=== PATIENT | female | born 1950 | race Caucasian/White ===

== ENCOUNTER 2023-10-24 15:29 | Outpatient (AMB) | payer MEDICARE, SELFPAY ==
--- NOTE | 2023-10-24 15:46 | A.OFFPC_ITS ---
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 Required: No Allergies No Known Allergies Allergy (Verified 10/24/23 15:48) Medication List - Last Reconciled 10/24/23 by Kathy Geronimo MD metoprolol succinate ER 25 mg PO DAILY pantoprazole 40 mg PO DAILY pravastatin mg PO Tobacco use date assessed: 10/24/23 Fall risk assessment: No Falls in past year Last assessed Fall Risk: 10/24/23 Dental Screening Dental Screen Date: 10/24/23 Did you have a dental visit in the last 12 months?: Yes Did you have a dental problem in the last 6 months where you did not have access to dental care?: No Was dental information given to patient?: No HPI HPI Comments History of Present Illness Details The patient is a 72 year old female with a past medical history of hypertension, hyperlipidemia, anxiety, depression, GERD, neck pain presenting for follow up CV: On metoprolol ER 25mg daily, pravastatin 40mg every oter day. Denies chest pain, exertional dyspnea, NIX, vision changes GERD: On pantoprazole 40mg daily Insomnia: Previously on lunesta MSK: History of CTS Dr Annemarie Boyd 2022. Neck pain-MRI multilevel DDD cervical spine. Severe bilateral neural foraminal narrowing at C4-C5 and severe right neuroforaminal narrowing at C5-C6. [facility] Medical History (Updated 10/24/23 @ 16:08 by Kathy Geronimo MD) Paresthesia of skin Macrocytosis Insomnia HTN (hypertension) Hyperlipidemia History of pneumonia History of kidney stones Hiatal hernia Herniated cervical disc Depression DDD (degenerative disc disease), cervical Carpal tunnel syndrome Arthritis Anesthesia of skin Surgical History (Updated 10/24/23 @ 15:59 by Melisa Jolley CMA) Status post laser cataract surgery of right eye Hx of tubal ligation History of colonoscopy Family History (Updated 10/24/23 @ 16:01 by Melisa Jolley CMA) Mother Dementia Father Lung cancer Sister COPD (chronic obstructive pulmonary disease) Other Anxiety FH: mental illness Social History (Updated 10/24/23 @ 15:50 by Melisa Jolley CMA) Housing: House Patient Tobacco Use Status: Former Tobacco user Years Smoked: 25 e-Cigarette/Vaping Use: Never Used Second Hand Smoke Exposure: No Use of substances other than those prescribed or required for medical reasons: No service: No Current occupational status: employed and retired Cognitive needs: No Hearing needs: No Vision needs: No Questionnaire AUDIT C Alcohol Use Questionnaire (AUDIT-C) 1. How often do you have a drink containing alcohol?: 2-3 times a week 2. How many drinks containing alcohol do you have on a typical day when you are drinking?: 3 or 4 3. How often do you have six or more drinks on one occasion?: Never Total Score: 4 Physical exam (Primary Care) Vital Signs: Last Vital Signs Temp 98.2 F 10/24/23 15:52 Pulse 69 10/24/23 15:52 Resp 14 10/24/23 15:52 BP 118/62 10/24/23 15:52 Pulse Ox 94 10/24/23 15:52 Oxygen Delivery Method Room Air 10/24/23 15:52 BMI result Body Mass Index 24.4 Tobacco/Smoking Status: Tobacco use Status Tobacco use date assessed 10/24/23 10/24/23 15:51 Patient Tobacco Use Status Former Tobacco user 10/24/23 15:51 e-Cigarette/Vaping Use Never Used 10/24/23 15:51 Assessment and Plan Assessment & Plan (1) DDD (degenerative disc disease), cervical: Code(s): M50.30 - Other cervical disc degeneration, unspecified cervical region (2) Hyperlipidemia: Code(s): E78.5 - Hyperlipidemia, unspecified (3) HTN (hypertension): Code(s): I10 - Essential (primary) hypertension (4) Insomnia: Code(s): G47.00 - Insomnia, unspecified Orders: Orders Complete Blood Count Auto Diff Today E78.5 - Hyperlipidemia, unspecified, I10 - Essential (primary) hypertension, M50.30 - Other cervical disc degeneration, unspecified cervical region, Z13.0 - Encounter for screening for diseases of the blood and blood-forming organs and certain disorders involving the immune mechanism Comprehensive Met. Panel Today E78.5 - Hyperlipidemia, unspecified, I10 - Essential (primary) hypertension, M50.30 - Other cervical disc degeneration, unspecified cervical region, Z13.0 - Encounter for screening for diseases of the blood and blood-forming organs and certain disorders involving the immune mechanism Lipid Panel Today E78.5 - Hyperlipidemia, unspecified, I10 - Essential (primary) hypertension, M50.30 - Other cervical disc degeneration, unspecified cervical region, Z13.0 - Encounter for screening for diseases of the blood and blood-forming organs and certain disorders involving the immune mechanism Medications: New pantoprazole 40 mg PO DAILY 90 days 90 tabs 3RF pravastatin 40 mg PO DAILY 90 days 90 tabs 3RF eszopiclone (Lunesta) 3 mg PO DAILY 60 days 60 tabs 0RF G47.00 - Insomnia, unspecified diclofenac sodium 1% (Arthritis Pain (diclofenac)) apply to shoulder 2 grams topical QID 90 days 100 grams 1RF prednisone 40 mg (2 x 20 mg) PO DAILY 5 days 10 tabs 0RF Coding Level of Care Code Est Pt Level 4 (58815) Complex EM visit Add On G2211 Diagnoses DDD (degenerative disc disease), cervical M50.30 Hyperlipidemia E78.5 HTN (hypertension) I10 Insomnia G47.00
[2023-10-24 15:52] VITALS: BP 118/62; PULSE 69; RESP 14; TEMP 36.8; O2SAT 94; BMI 24.4
== END 2023-10-24 16:49 | disposition home or self-care (01) ==
PROVIDERS: PCP Internal Medicine; Visit Provider Internal Medicine
DX: M50.30 Other cervical disc degeneration, unspecified cervical region (principal); E78.5 Hyperlipidemia, unspecified; I10 Essential (primary) hypertension; G47.00 Insomnia, unspecified
CPT/HCPCS: 99214; G2211

== ENCOUNTER 2024-04-30 13:34 | Outpatient (AMB) | payer MEDICARE, SELFPAY ==
[2024-04-30 13:41] VITALS: BP 144/67; PULSE 75; TEMP 37.3; O2SAT 93; BMI 23.3
--- NOTE | 2024-04-30 13:41 | A.OFFPC_ITS ---
Vital Signs 04/30/24 13:41 04/30/24 13:46 Height 5 ft 4 in Weight 136 lb BMI 23.3 BP 144/67 H 142/67 H Blood Pressure Location Lt brachial Lt brachial Position Sitting Sitting Pulse 75 Pulse Source Pulse Oximeter Temp 99.1 F Temp Source Temporal Artery Scan Pulse Oximetry (%) 93 Oxygen Delivery Method Room Air Intake Visit Reasons: Cold and Trouble Breathing Intake Note: Coughing, trouble breathing, crackling in the lungs. Transmission Systems Operator Required: No Allergies No Known Allergies Allergy (Verified 04/30/24 13:48) Tobacco use date assessed: 10/24/23 Dental Screening Dental Screen Date: 10/24/23 HPI HPI Comments History of Present Illness Details The patient is a 72 year old female with a past medical history of hypertension, hyperlipidemia, anxiety, depression, GERD, neck pain presenting for sick visit She has had nasal congestion, cough, shortness of breath, intermittent wheeze since . She has a history of pneumonia. Low grade temp today CV: On metoprolol ER 25mg daily, pravastatin 40mg every oter day. Denies chest pain, exertional dyspnea, NIX, vision changes GERD: On pantoprazole 40mg daily Insomnia: Previously on lunesta MSK: History of CTS Dr Annemarie Boyd 2022. Neck pain-MRI multilevel DDD cervical spine. Severe bilateral neural foraminal narrowing at C4-C5 and severe right neuroforaminal narrowing at C5-C6. ROS see hpi PHYSICAL EXAM: GENERAL: Alert and oriented x 3. NAD EYES: EOMI. Anicteric. HENT: Moist mucous membranes. Boggy nasal mucosa. LUNGS: Poor air entry bilaterally CARDIOVASCULAR: Regular rate and rhythm. No murmur. No JVD. ABDOMEN: Soft, non-tender +bs EXTREMITIES: No edema. Non-tender. SKIN: No rashes or lesions. Warm. NEUROLOGIC: No focal neurological deficits. CN II-XII grossly intact PSYCHIATRIC: Cooperative. Appropriate mood and affect [facility] Medical History (Updated 05/02/24 @ 11:18 by Kathy Geronimo MD) Paresthesia of skin Macrocytosis Insomnia HTN (hypertension) Hyperlipidemia History of pneumonia History of kidney stones Hiatal hernia Herniated cervical disc Depression DDD (degenerative disc disease), cervical Carpal tunnel syndrome Arthritis Anesthesia of skin Surgical History (Updated 10/24/23 @ 15:59 by Melisa Jolley CMA) Status post laser cataract surgery of right eye Hx of tubal ligation History of colonoscopy Family History (Updated 10/24/23 @ 16:02 by Melisa Jolley CMA) Mother Dementia Father Lung cancer Sister COPD (chronic obstructive pulmonary disease) Other Anxiety FH: mental illness Social History (Updated 10/24/23 @ 15:50 by Melisa Jolley CMA) Housing: House Patient Tobacco Use Status: Former Tobacco user Years Smoked: 25 e-Cigarette/Vaping Use: Never Used Second Hand Smoke Exposure: No service: No Current occupational status: employed and retired Cognitive needs: No Hearing needs: No Vision needs: No Questionnaire PHQ-9 Over the last 2 weeks, how often have you been bothered by any of the following problems? 9. Thoughts that you would be better off or of hurting yourself in some w ay: not at all Source: Developed by Drs. Karson Ramirez, Sierra Barroso, Julian Casas and colleagues, with an educational kush from [employer]. Thrive Questionnaire I am a: Patient What is your living situation today?: I have a steady place to live Within the past 12 months, did the food you bought not last and you didn't have the money to get more?: Never true Within the past 12 months, did you worry whether your food would run out before you got money to buy more?: Never true Do you have trouble paying for medicines?: No Do you have trouble getting transportation to medical appointments?: No Do you have trouble paying your heating and electricity bill?: No Do you have trouble taking care of your child, family member or friend?: No Do you have trouble with day-to-day activities such as bathing, preparing meals, shopping, managing finances, etc.?: No Are you currently unemployed and looking for a job?: No Are you interested in more education?: No Please select the resources that you would like help with: None Currently or been in a relationship where the following occur: No concerns reported THRIVE Score: 0 AUDIT C Alcohol Use Questionnaire (AUDIT-C) 1. How often do you have a drink containing alcohol?: 2-3 times a week 2. How many drinks containing alcohol do you have on a typical day when you are drinking?: 1 or 2 3. How often do you have six or more drinks on one occasion?: Never Total Score: 3 BROOKE-7 AMB Questionnaire BROOKE-7 Feeling nervous, anxious, or on edge: 1 = Several days Not being able to stop or control worryin = More than half the days Worrying too much about different things: 0 = Not at all Trouble relaxin = Not at all Being so restless that it is hard to sit still: 0 = Not at all Becoming easily annoyed or irritable: 1 = Several days Feeling afraid as if something awful might happen: 0 = Not at all Total BROOKE-7 score (0-4 normal; 5-9 mild; 10-14 moderate; 15-21 severe): 4 Source: Developed by Drs. Karson Ramirez, Sierra Barroso, Julian Casas and colleagues, with an educational kush from [employer]. Physical exam (Primary Care) Vital Signs: Last Vital Signs Temp 99.1 F 04/30/24 13:41 Pulse 75 04/30/24 13:41 BP 142/67 H 04/30/24 13:46 Pulse Ox 93 04/30/24 13:41 Oxygen Delivery Method Room Air 04/30/24 13:41 BMI result Body Mass Index 23.3 Tobacco/Smoking Status: Tobacco use Status Tobacco use date assessed 10/24/23 04/30/24 13:47 Patient Tobacco Use Status Former Tobacco user 04/30/24 13:47 e-Cigarette/Vaping Use Never Used 04/30/24 13:47 Currently or been in a relationship where the following occur: No concerns reported Coding Level of Care Code Est Pt Level 4 (90037) Diagnoses Acute cough R05.1 Cough type: acute Assessment & Plan Assessment & Plan (1) Cough: Code(s): R05.9 - Cough, unspecified Category: Medical Qualifiers: Cough type: acute Qualified Code(s): R05.1 - Acute cough Plan: Poor air entry bilaterally-potential pneumonia. Doxycycline, prednisone sent. ADvised to call for persistent or worsening symptoms RSV/flu/COVID swab sent Orders: Orders Resp Pathogen [place] [facility] [place] R05.9 - Cough, unspecified Medications: New doxycycline hyclate 100 mg PO BID 20 tabs 0RF albuterol sulfate 90 mcg/actuation 2 puffs inhalation Q6H PRN 8.5 grams 0RF shortness of breath or wheezing 30 days Changed From prednisone 40 mg (2 x 20 mg) PO DAILY 5 days 10 tabs 0RF To prednisone 40 mg (2 x 20 mg) PO DAILY 6 tabs 0RF 3 days Refilled eszopiclone (Lunesta) 3 mg PO DAILY 60 tabs 0RF 60 days G47.00 - Insomnia, unspecified
[2024-04-30 13:46] VITALS: BP 142/67
== END 2024-04-30 14:21 | disposition home or self-care (01) ==
PROVIDERS: PCP Internal Medicine; Visit Provider Internal Medicine
DX: R05.1 Acute cough (principal)

== ENCOUNTER 2024-04-30 13:34 | Outpatient (REF) | payer MEDICARE, SELFPAY ==
[2024-05-01 16:15] LABS: Influenza A PCR NEGATIVE (Negative); Influenza B PCR NEGATIVE (Negative); Resp Syncy Virus RNA Qual PCR NEGATIVE (Negative); SARS COV2 PCR INHOUSE NEGATIVE (Negative)
== END 2024-04-30 13:35 | disposition home or self-care (01) ==
LOC: HO.LNP 13:34
PROVIDERS: PCP Internal Medicine; Visit Provider Internal Medicine
DX: R05.1 Acute cough (principal)
CPT/HCPCS: 0241U; 99212

== ENCOUNTER 2025-01-28 15:51 | Outpatient (AMB) | payer MEDICARE, SELFPAY ==
--- NOTE | 2025-01-28 15:55 | MHC.PC.OV ---
Vital Signs 01/28/25 15:58 Height 5 ft 4 in Weight 140 lb 6 oz BMI 24.1 BP 128/72 Blood Pressure Location Rt brachial Position Sitting Respiration 14 Pulse 62 Pulse Source Pulse Oximeter Pulse Oximetry (%) 94 Oxygen Delivery Method Room Air Intake Visit Reasons: Med Review Intake Note: Follow up Cake Winder Required: No Allergies No Known Allergies Allergy (Verified 01/28/25 15:56) Tobacco use date assessed: 01/28/25 Fall risk assessment: No Falls in past year Last assessed Fall Risk: 01/28/25 Dental Screening Dental Screen Date: 01/28/25 Did you have a dental visit in the last 12 months?: Yes Did you have a dental problem in the last 6 months where you did not have access to dental care?: No Was dental information given to patient?: Patient has dentist HPI HPI Comments History of Present Illness Details The patient is a 74 year old female with a past medical history of hypertension, hyperlipidemia, anxiety, depression, GERD, neck pain presenting for follow up CV: On metoprolol ER 25mg daily, pravastatin 40mg every other day. Denies chest pain, exertional dyspnea, NIX, vision changes GERD: On pantoprazole 40mg daily. She is having frequent reflux, dyspepsia. No heartburn. She would like to try and increase meds to twice daily. She has a history of hiatal hernia Insomnia: On lunesta as needed. Increased depressive symptoms. Decline medications MSK: History of CTS Dr Annemarie Boyd 2022. Neck pain-MRI multilevel DDD cervical spine. Severe bilateral neural foraminal narrowing at C4-C5 and severe right neuroforaminal narrowing at C5-C6. Has seen explosive technician. Has lichen sclerosis. Feels that she has more diffuse autoimmune issues. Frustrated b/c she wants to try HRT. Sees dermatology Mammogram ordered Declines colon cancer screening. ROS see hpi PHYSICAL EXAM: GENERAL: Alert and oriented x 3. NAD EYES: EOMI. Anicteric. HENT: Moist mucous membranes. Boggy nasal mucosa. LUNGS: Poor air entry bilaterally CARDIOVASCULAR: Regular rate and rhythm. No murmur. No JVD. ABDOMEN: Soft, non-tender +bs EXTREMITIES: No edema. Non-tender. SKIN: No rashes or lesions. Warm. NEUROLOGIC: No focal neurological deficits. CN II-XII grossly intact PSYCHIATRIC: Cooperative. Appropriate mood and affect [facility] Medical History (Updated 01/30/25 @ 15:02 by Kathy Geronimo MD) Paresthesia of skin Macrocytosis Insomnia HTN (hypertension) Hyperlipidemia History of pneumonia History of kidney stones Hiatal hernia Herniated cervical disc Depression DDD (degenerative disc disease), cervical Carpal tunnel syndrome Arthritis Anesthesia of skin Surgical History Status post laser cataract surgery of right eye Hx of tubal ligation History of colonoscopy Family History Mother Dementia Father Lung cancer Sister COPD (chronic obstructive pulmonary disease) Other Anxiety FH: mental illness Social History Housing: House Alcohol intake: current Patient Tobacco Use Status: Former Tobacco user Years Smoked: 25 e-Cigarette/Vaping Use: Never Used Second Hand Smoke Exposure: No service: No Current occupational status: employed and retired Cognitive needs: No Hearing needs: No Vision needs: No Questionnaire Thrive Questionnaire Date Thrive assessed: 04/30/24 I am a: Patient What is your living situation today?: I have a steady place to live Within the past 12 months, did the food you bought not last and you didn't have the money to get more?: Never true Within the past 12 months, did you worry whether your food would run out before you got money to buy more?: Never true Do you have trouble paying for medicines?: No Do you have trouble getting transportation to medical appointments?: No Do you have trouble paying your heating and electricity bill?: No Do you have trouble taking care of your child, family member or friend?: No Do you have trouble with day-to-day activities such as bathing, preparing meals, shopping, managing finances, etc.?: No Are you currently unemployed and looking for a job?: No Are you interested in more education?: No Please select the resources that you would like help with: None Currently or been in a relationship where the following occur: No concerns reported THRIVE Score: 0 AUDIT C Alcohol Use Questionnaire (AUDIT-C) 1. How often do you have a drink containing alcohol?: 2-3 times a week 2. How many drinks containing alcohol do you have on a typical day when you are drinking?: 1 or 2 3. How often do you have six or more drinks on one occasion?: Never Total Score: 3 Physical exam (Primary Care) Vital Signs: Last Vital Signs Pulse 62 01/28/25 15:58 Resp 14 01/28/25 15:58 BP 128/72 01/28/25 15:58 Pulse Ox 94 01/28/25 15:58 Oxygen Delivery Method Room Air 01/28/25 15:58 BMI result Body Mass Index 24.1 Tobacco/Smoking Status: Tobacco use Status Tobacco use date assessed 01/28/25 01/28/25 16:01 Patient Tobacco Use Status Former Tobacco user 01/28/25 16:01 e-Cigarette/Vaping Use Never Used 01/28/25 16:01 Thrive Assessment: Date of Thrive Assessment Date Thrive assessed 04/30/24 01/28/25 16:01 Currently or been in a relationship where the following occur: No concerns reported Coding Level of Care Code Est Pt Level 4 (65890) Complex EM visit Add On G2211 Diagnoses Lichen sclerosus L90.0 Primary hypertension I10 Hypertension type: primary hypertension Hyperlipidemia, unspecified hyperlipidemia type E78.5 Hyperlipidemia type: unspecified Dyspepsia R10.13 Mild episode of recurrent major depressive disorder F33.0 Active/Remission status: currently active Depression Type: major depressive disorder Major depression episode severity: mild Major depression recurrence: recurrent Assessment & Plan Assessment & Plan (1) Lichen sclerosus: Code(s): L90.0 - Lichen sclerosus et atrophicus Category: Medical (2) HTN (hypertension): Code(s): I10 - Essential (primary) hypertension Category: Medical Qualifiers: Hypertension type: primary hypertension Qualified Code(s): I10 - Essential (primary) hypertension (3) Hyperlipidemia: Code(s): E78.5 - Hyperlipidemia, unspecified Category: Medical Qualifiers: Hyperlipidemia type: unspecified Qualified Code(s): E78.5 - Hyperlipidemia, unspecified (4) Dyspepsia: Code(s): R10.13 - Epigastric pain Category: Medical (5) Depression: Code(s): F32.A - Depression, unspecified Category: Medical Qualifiers: Active/Remission status: currently active Depression Type: major depressive disorder Major depression episode severity: mild Major depression recurrence: recurrent Qualified Code(s): F33.0 - Major depressive disorder, recurrent, mild Plan 74 year old for follow up dyspepsia/reflux-increase PPI to max. Check h pylori. Mammo ordered lichen sclerosis-she would like to try HRT. Discussed risks, benefits Depression-she declines medications. Worried about weight gain Labs ordered Orders: Orders H pylori Ag Stool 01/28/25 E78.5 - Hyperlipidemia, unspecified, I10 - Essential (primary) hypertension, M50.30 - Other cervical disc degeneration, unspecified cervical region, R10.13 - Epigastric pain, R35.89 - Other polyuria Complete Blood Count Auto Diff 01/28/25 E78.5 - Hyperlipidemia, unspecified, I10 - Essential (primary) hypertension, M50.30 - Other cervical disc degeneration, unspecified cervical region, R10.13 - Epigastric pain, R35.89 - Other polyuria Comprehensive Met. Panel 01/28/25 E78.5 - Hyperlipidemia, unspecified, I10 - Essential (primary) hypertension, M50.30 - Other cervical disc degeneration, unspecified cervical region, R10.13 - Epigastric pain, R35.89 - Other polyuria Lipid Panel 01/28/25 E78.5 - Hyperlipidemia, unspecified, I10 - Essential (primary) hypertension, M50.30 - Other cervical disc degeneration, unspecified cervical region, R10.13 - Epigastric pain, R35.89 - Other polyuria Hemoglobin A1c 01/28/25 E78.5 - Hyperlipidemia, unspecified, I10 - Essential (primary) hypertension, M50.30 - Other cervical disc degeneration, unspecified cervical region, R10.13 - Epigastric pain, R35.89 - Other polyuria TORI Reflex Titer and Pattern Today L90.0 - Lichen sclerosus et atrophicus MM tomosynthesis screening BI 01/28/25 Z12.31 - Encounter for screening mammogram for malignant neoplasm of breast Medications: New estradiol-norethindrone acet 1-0.5 mg (Activella) 1 tab PO DAILY 28 tabs 3RF Changed From pantoprazole 40 mg PO DAILY 90 days 180 tabs 3RF To pantoprazole 40 mg PO BID 180 tabs 3RF 90 days Refilled pantoprazole 40 mg PO DAILY 90 days 180 tabs 3RF
[2025-01-28 15:58] VITALS: BP 128/72; PULSE 62; RESP 14; O2SAT 94; BMI 24.1
--- OUTSIDE RECORDS SUMMARY | 2025-01-28 17:56 | XMS_ITS | Clinical Summary ---
Author Organization [address] [facility] Address [address] [place] [address] Phone Care Team Providers Care Supply Chain Business Analyst Name Role Phone Physician, Pcp Unknown Primary Care Provider Pili vailable Surgical History Surgery Date Site/Laterality Comments SHOULDER ARTHROSCOPY PROCEDURE: CO SURGICAL ARTHROSCOPY SHOULDER W/LSS&[id number] ADS Medical History Medical History Date Comments Essential hypertension DX:Essent ial hypertension Acid reflux DX:Acid reflux Social History Tobacco Use Types Packs/Day Years Used Date Smoking Tobacco: Never Smokeless Tobacco: Never Comments Unknown Sex and Gender Information Value Date Recorded Sex Assigned at Not on file Legal Sex Female 8:28 PM EDT Gender Identity Not on file Sexual Orientation Not on file Obstetrics History Last Filed Vital Signs Vital Sign Reading Time Taken Comments Blood Pressure - - Pulse - - Temperature - - Respiratory Rate - - Oxygen Saturation - - Inhaled Oxygen Concentration - - Weight 62.6 kg (138 lb) 03/23/2023 1:02 PM EST Height 162.6 cm (5' 4 ) 03/23/2023 1:02 PM EST Body Mass Index 23.69 03/23/2023 1:02 PM EST Plan of Treatment Health Maintenance Due Date Last Done Comments DTaP,Tdap,and Td Vaccines (1 - Tdap) 1969 Pneumococcal Vaccine: 50+ Ye ars (1 of 1 - PCV) 10/31/1999 Zoster Vaccines (1 of 2) 10/31/1999 Colorectal Cancer Screening: Colonoscopy 04/04/2022 Falls Risk Assessment 04/04/2022 Hepatitis C Screening 04/04/2022 Medicare Annual Wellness Visit 04/04/2022 Osteoporosis Screening (Bone Density Screening) 04/04/2022 Social Influencers of Health Screening 04/04/2022 Depression Screening 05/02/2024 RSV Immunization Adult Patie nts (1 - 1-dose 75+ series) 2024 COVID-19 Vaccine (1 2023-2 5 season) 2024 Influenza Vaccine (#1) 2024 HIB Vaccines Aged Out No longer eligi ble based on patient's age to complete this topic HPV Vaccines Aged Out No longer eligi ble based on patient's age to complete this topic Hepatitis A Vaccines Aged Out No long er eligible based on patient's age to complete this topic Hepatitis B Vaccines Aged Out No long er eligible based on patient's age to complete this topic IPV Vaccines Aged Out No longer eligi ble based on patient's age to complete this topic MMR Vaccines Aged Out No longer eligi ble based on patient's age to complete this topic Meningococcal ACWY Vaccine Aged Out N o longer eligible based on patient's age to complete this topic Meningococcal B Vaccine Aged Out No l onger eligible based on patient's age to complete this topic RSV Immunization Patients Un loyda 20 months Aged Out No longer eligible b ased on patient's age to complete this topic Varicella Vaccines Aged Out No longer eligible based on patient's age to complete this topic Insurance BLUE [employer]OSS - [place] MEDICARE ADVANTAGE Care Teams Supply Chain Business Analyst Relationship Specialty Start Date End Date Physician, Pcp Unknown PCP - General 09/20/24
--- OUTSIDE RECORDS SUMMARY | 2025-01-28 17:56 | XMS_ITS | Encounter Summary ---
Author Organization [facility] Address [address] [place] [address] Care Team Providers Care Cabinet Maker Name Role Phone Physician, Pcp Unknown Primary Care Provider Pili vailable Encounter Details Date Type Department Care Team (Late st Contact Info) Description 09/20/2024 Lab Requisition [facility] - Main Lab [address] [place] [phone] Marce aSba MD [address] [phone] Acute vaginitis Social History Tobacco Use Types Packs/Day Years Used Date Smoking Tobacco: Never Smokeless Tobacco: Never Comments Unknown Sex and Gender Information Value Date Recorded Sex Assigned at Not on file Legal Sex Female 8:28 PM EDT Gender Identity Not on file Sexual Orientation Not on file documented as of this encounter Plan of Treatment Not on file documented as of this encounter Procedures Procedure Name Priority Date/Time Associated Diagnosis Comments VAGINITIS PATHOGENS BY PCR Routine 09/20/2024 12:00 AM EDT Acute vaginitis documented in this encounter Results * Vaginitis pathogens molecular study (09/20/2024 12:00 AM EDT) Trichomonas vaginalis Negative Negative 09/21/2024 11:40 AM EDT [facility] Gardnerella vaginalis Negative Negative 09/21/2024 11:40 AM EDT [facility] Ira Species Negative Negative 11:40 AM EDT [facility] Swab Vaginal structure / Unknown 09/20/2024 09/20/2024 12:31 PM EDT us Marce Saba MD LAB MICROBIOLOGY - GENER AL ORDERABLES Final Result [facility] [address] [place] [address], documented in this encounter Visit Diagnoses Diagnosis Acute vaginitis Unspecified vaginitis and vulvovaginitis documented in this encounter Care Teams Cabinet Maker Relationship Specialty Start Date End Date Physician, Pcp Unknown PCP - General 09/20/24 documented as of this encounter
== END 2025-01-28 16:15 | disposition home or self-care (01) ==
LOC: HO.HMCFM 15:52
PROVIDERS: PCP Internal Medicine; Visit Provider Internal Medicine
DX: L90.0 Lichen sclerosus et atrophicus (principal); I10 Essential (primary) hypertension; E78.5 Hyperlipidemia, unspecified; R10.13 Epigastric pain; F33.0 Major depressive disorder, recurrent, mild

== ENCOUNTER → 2025-01-28 15:51 | Outpatient (BNVA) | payer MEDICARE, SELFPAY | PROVIDERS: PCP Internal Medicine; Visit Provider Internal Medicine | DX: L90.0 Lichen sclerosus et atrophicus (principal); I10 Essential (primary) hypertension; E78.5 Hyperlipidemia, unspecified; R10.13 Epigastric pain; F33.0 Major depressive disorder, recurrent, mild; K21.9 Gastro-esophageal reflux disease without esophagitis; G47.00 Insomnia, unspecified; Z79.899 Other long term (current) drug therapy | CPT/HCPCS: 99212 ==

== ENCOUNTER 2025-02-07 12:48 | Outpatient (REF) | payer MEDICARE, SELFPAY ==
[2025-02-07 14:33] LABS: MANUAL DIFF FLAG NO
[2025-02-07 14:36] LABS: Hematocrit 33.3 % (37.0-47.0); Hemoglobin 10.9 g/dl (12.0-16.0); Imm Gran Abs Auto 0.01 X10*3/uL (0.00-0.03); Imm Gran Pct Auto 0.2 % (0.0-0.4); Lymphocytes Absolute Auto 1.8 X10*3/uL (1.2-4.9); Mean Corpuscular HGB Conc 32.7 g/dl (31.0-35.0); Mean Corpuscular Hemoglobin 33.5 pg (27.0-33.0); Mean Corpuscular Volume 102.5 fL (80.0-98.0); NRBC Abs Auto 0.000 X10*3/uL (0.0-0.012); NRBC Pct Auto 0.0 /100WBC (0.0-0.2); Platelet Count 282 X10*3/uL (160-400); Red Blood Count 3.25 X10*6/uL (4.20-5.50); White Blood Count 6.1 X10*3/uL (4.8-10.8)
[2025-02-07 14:55] LABS: Alanine Aminotransferase 13 U/L (0-31); Albumin Level 4.3 g/dL (3.5-5.0); Alkaline Phosphatase 59 U/L (39-117); Anion Gap 11 (12-20); Aspartate Amino Transferase 19 U/L (5-31); Blood Urea Nitrogen 15 mg/dL (9-16); Calcium 9.1 mg/dL (8.4-10.2); Carbon Dioxide 29 mmol/L (22-29); Chloride 107 mmol/L (96-108); Cholesterol 204 mg/dL (<200); Estimated Glomerular Filt Rate > 60; HDL Cholesterol 74 mg/dL (>40); Potassium 4.1 mmol/L (3.3-5.1); Sodium 143 mmol/L (135-145); Total Protein 6.9 g/dL (6.5-8.0); Triglycerides 95 mg/dL (<150)
[2025-02-13 11:48] LABS: Anti Nuclear Antibody Screen NEGATIVE (NEGATIVE)
== END 2025-02-07 12:49 | disposition home or self-care (01) ==
LOC: HO.WFDLDS 12:48
PROVIDERS: Visit Provider Internal Medicine
DX: Z13.1 Encounter for screening for diabetes mellitus (principal); I10 Essential (primary) hypertension; M50.30 Other cervical disc degeneration, unspecified cervical region; R10.13 Epigastric pain; E78.5 Hyperlipidemia, unspecified; L90.0 Lichen sclerosus et atrophicus; R35.89 Other polyuria
CPT/HCPCS: 36415; 80053; 80061; 83036; 85025; 86038; 86039

== ENCOUNTER 2025-02-14 17:43 | Outpatient (REF) | payer MEDICARE, SELFPAY ==
--- OUTSIDE RECORDS SUMMARY | 2025-02-14 19:48 | XMS_ITS | Encounter Summary ---
Author Organization [facility] Address [address] [place] [address] Care Team Providers Care Television Maintenance Man Name Role Phone Physician, Pcp Unknown Primary Care Provider Pili vailable Encounter Details Date Type Department Care Team (Late st Contact Info) Description 09/20/2024 Lab Requisition [facility] - Main Lab [address] [place] [phone] Marce Saba MD [address] [phone] Acute vaginitis Social History Tobacco Use Types [...] vaginalis Negative Negative 09/21/2024 11:40 AM EDT [facility] Gardnerella vaginalis Negative Negative 09/21/2024 11:40 AM EDT [facility] Ira Species Negative Negative 11:40 AM EDT [facility] Swab Vaginal structure / Unknown 09/20/2024 09/20/2024 12:31 PM EDT us Marce Saba MD LAB MICROBIOLOGY - GENER AL ORDERABLES Final Result [facility] [address] [place] [address], documented in this encounter Visit Diagnoses Diagnosis Acute vaginitis Unspecified vaginitis and vulvovaginitis documented in this encounter Care Teams Television Maintenance Man Relationship Specialty Start Date End Date Physician, Pcp Unknown PCP - General 09/20/24 documented as of this encounter
--- OUTSIDE RECORDS SUMMARY | 2025-02-14 19:48 | XMS_ITS | Clinical Summary ---
Author Organization 299 [facility] Address [address] [place] [address] Phone Care Team Providers Care Room Service Runner Name Role Phone Physician, Pcp Unknown Primary Care Provider Pili vailable Surgical History Surgery Date Site/Laterality Comments SHOULDER ARTHROSCOPY PROCEDURE: [place] SURGICAL ARTHROSCOPY SHOULDER W/LSS&RESCJ ADS Medical History [...] Health Maintenance Due Date Last Done Comments Colorectal Cancer Screening: Colonoscopy 1949 DTaP,Tdap,and Td Vaccines (1 - Tdap) 1968 Pneumococcal Vaccine: 50+ Ye ars (1 of 1 - PCV) 10/31/1999 Zoster Vaccines (1 of 2) 10/31/1999 Falls Risk Assessment 04/04/2022 Hepatitis C Screening [...] [place] - [place] Care Teams Room Service Runner Relationship Specialty Start Date End Date Physician, Pcp Unknown PCP - General 09/20/24
== END 2025-02-14 17:44 | disposition home or self-care (01) ==
LOC: HO.LNP 17:43
PROVIDERS: Visit Provider Internal Medicine
DX: I10 Essential (primary) hypertension (principal); E78.5 Hyperlipidemia, unspecified; M50.30 Other cervical disc degeneration, unspecified cervical region; R35.89 Other polyuria; R10.13 Epigastric pain
CPT/HCPCS: 87338

== ENCOUNTER 2025-04-08 15:22 | Outpatient (REF) | payer MEDICARE, SELFPAY ==
--- OUTSIDE RECORDS SUMMARY | 2025-04-09 00:52 | XMS_ITS | Clinical Summary ---
Author Organization 299 [facility] Address [address] [place] [address] Phone Care Team Providers Care Client Business Manager Name Role Phone Physician, Pcp Unknown Primary Care Provider Pili vailable Surgical History Surgery Date Site/Laterality Comments SHOULDER ARTHROSCOPY PROCEDURE: [place] SURGICAL ARTHROSCOPY SHOULDER W/LSS&RESCJ ADS Medical History [...] on file Sexual Orientation Not on file Last Filed Vital Signs Vital Sign Reading [...] - 1-dose 75+ series) 2024 COVID-19 Vaccine (2024-2 6 season) 2024 Influenza Vaccine (#1) 2024 HIB [...] [place] - [place] Care Teams Client Business Manager Relationship Specialty Start Date End Date Physician, Pcp Unknown PCP - General 09/20/24
--- OUTSIDE RECORDS SUMMARY | 2025-04-09 00:52 | XMS_ITS | Encounter Summary ---
Author Organization [facility] Address [address] [place] [address] Care Team Providers Care Medical Sociologist Name Role Phone Physician, Pcp Unknown Primary Care Provider Pili vailable Encounter Details Date Type Department Care Team (Late st Contact Info) Description 09/20/2024 Lab Requisition [facility] - Main Lab [address] [place] [phone] Marce Saba MD [address] [phone] Acute vaginitis Social History Tobacco Use Types [...] vaginalis Negative Negative 09/21/2024 11:[address] [facility] Gardnerella vaginalis Negative Negative 09/21/2024 11:[address] [facility] Ira Species Negative Negative 11:40 AM EDT [facility] Swab Vaginal structure / Unknown 09/20/2024 09/20/2024 12:31 PM EDT us Marce Saba MD LAB MICROBIOLOGY - GENER AL ORDERABLES Final Result [facility] [address] [place] [address], documented in this encounter Visit Diagnoses Diagnosis Acute vaginitis Unspecified vaginitis and vulvovaginitis documented in this encounter Care Teams Medical Sociologist Relationship Specialty Start Date End Date Physician, Pcp Unknown PCP - General 09/20/24 documented as of this encounter
== END 2025-04-08 15:23 | disposition home or self-care (01) ==
LOC: HO.MAMMO 15:22
PROVIDERS: PCP Internal Medicine; Visit Provider Internal Medicine
DX: Z12.31 Encounter for screening mammogram for malignant neoplasm of breast (principal)
CPT/HCPCS: 77063; 77067

== ENCOUNTER → 2025-04-08 15:30 | Outpatient (BNV) | payer MEDICARE, SELFPAY | PROVIDERS: PCP Internal Medicine; Visit Provider Radiology Body Imaging | DX: Z12.31 Encounter for screening mammogram for malignant neoplasm of breast (principal) | CPT/HCPCS: 77063; 77067 ==

== ENCOUNTER 2025-04-19 13:38 | Outpatient (REF) | payer MEDICARE, SELFPAY ==
--- OUTSIDE RECORDS SUMMARY | 2025-04-19 15:21 | XMS_ITS | Clinical Summary ---
Author Organization 299 [facility] Address [address] [place] [address] Phone Care Team Providers Care Unit Clerk Name Role Phone Physician, Pcp Unknown Primary Care Provider Pili vailable Surgical History Surgery Date Site/Laterality Comments SHOULDER ARTHROSCOPY PROCEDURE: [place] SURGICAL ARTHROSCOPY SHOULDER W/LSS&RESCJ ADS Medical History [...] [place] Care Teams Unit Clerk Relationship Specialty Start Date End Date Physician, Pcp Unknown PCP - General 09/20/24
--- OUTSIDE RECORDS SUMMARY | 2025-04-19 15:21 | XMS_ITS | Patient Health Record ---
Author Organization [facility] Address [address] [place] [address] Care Team Providers Care Jewel Stringer Name Role Phone Kathy Goetz MD Primary Care Provider Unavailabl e Black, Eugenie Unavailable [phone] Allergies Allergen (clinical drug ingredient) Drug/Non Drug Allergy documented on EMR Reaction Allergy Type Onset Date Status nickel Nickel (uncoded) Unknown Allergy Act rola Results Component Value Reference Range Notes X ray : Foot, right 3V Reviewed date:04/10/2025 12:31:52 PM Interpretation:See Examination above Performing Lab: Notes/Report: See Examination above Reason For Referral No Information Medications Medication SIG (Take, Route, Fr equency, Duration) Notes Start Date End Date Status Eszopiclone Active Clobetasol Propionate Active Pravastatin Sodium A ctive Pantoprazole Sodium Active Metoprolol Succinate Active Social History Tobacco Use: Social History Observation Description Date Details (start date - stop date) Never Smoker NA - NA Tobacco use other than smoking: Question Answer Notes Are you an other tobacco user? No Tobacco Control (Standard) Question Answer Notes Tobacco use: Nonsmoker Additional Findings: Tobacco non-user Current no nsmoker AUDIT-C (Standard) Question Answer Notes Did you have a drink contain ing alcohol in the past year? Yes How often did you have a dri nk containing alcohol in the past year? 2 to 4 times a month (2 points) How many drinks did you have on a typical day when you were drinking in the past year? 1 or 2 drinks (0 point) How often did you have six o r more drinks on one occasion in the past year? Never (0 point) Points 2 Interpretation Negative Problems Problem Type SNOMED Code ICD Code Onset Dates Problem Status W/U Status Risk Notes Problem Acquired hallux valgus (83918709) Hallux valgus (acquired), right foot (M20.11) Active confirmed Problem Acquired hammer toe of left foot ([id number] 103) Hammer toe of left foot (M20.42) Active confirmed Vital Signs Blood pressure diastolic 75 mm Hg 04/10/2025 Height 5ft 4in in 04/10/2025 Blood pressure systolic 120 mm Hg 04/10/2025 Weight 130 lbs 04/10/2025 BMI 22.31 kg/m2 04/10/2025 Encounters Encounter Location Date Provider Diagnosis [facility] [address] [place] [address] 04/10/2025 Eugenie Black Pain in right foot M79.671 ; Hallux valgus (acquired), right foot M20.11 ; Pain in right ankle and joints of right foot M25.571 ; Bursitis of right foot M77.51 and Hammer toe of left foot M20.[address] [facility] [address] [place] [address] 03/12/2025 Eugenie Black Assessments Encounter Date Diagnosis (ICD Code) Assessment Notes Treatment Notes Treatment Clinical Notes Section Notes 04/10/2025 Pain in right foot (ICD-10 - M79.671) 04/10/2025 Hallux valgus (acquired), right foot (ICD-10 - M20.11) 04/10/2025 Pain in right ankle and joints of right foot (ICD-10 - M25.571) 04/10/2025 Bursitis of right foot (ICD-10 - M77.51) 04/10/2025 Hammer toe of left foot (ICD-10 - M20.42) Plan Of Treatment No Information Insurance Providers Payer Name Payer Address Payer Phone Subscriber Number Group Number Insured Name Patient Relationship to Insured Coverage Start Date Coverage End Date [employer] 65 Medicare Preferred [address] [place] [address] [id number] Nohemy Cano Self - patient is the insured Medical (General) History Medical History History ICD Code Anxiety Broken Bone(s) Cataracts Depression Hiatal Hernia Reflux (GERD) Chicken Pox Auto immune skin disease Surgical History Surgery Date(Month/Year) Child
--- OUTSIDE RECORDS SUMMARY | 2025-04-19 15:21 | XMS_ITS | Encounter Summary ---
Author Organization [facility] Address [address] [place] [address] Care Team Providers Care Television News Photographer Name Role Phone Physician, Pcp Unknown Primary Care Provider Pili vailable Encounter Details Date Type Department Care Team (Late st Contact Info) Description 09/20/2024 Lab Requisition [facility] - Main Lab [address] [place] [phone] Marce Saba MD [address] [phone] Acute vaginitis Social History Tobacco Use Types [...] vaginalis Negative Negative 09/21/2024 11:40 AM EDT [facility] Gardnerella vaginalis Negative Negative 09/21/2024 11:40 AM EDT [facility] Ira Species Negative Negative 11:40 AM EDT [facility] Swab Vaginal structure / Unknown 09/20/2024 09/20/2024 12:31 PM EDT us Marce Saba MD LAB MICROBIOLOGY - GENER AL ORDERABLES Final Result [facility] [address] [place] [address], documented in this encounter Visit Diagnoses Diagnosis Acute vaginitis Unspecified vaginitis and vulvovaginitis documented in this encounter Care Teams Television News Photographer Relationship Specialty Start Date End Date Physician, Pcp Unknown PCP - General 09/20/24 documented as of this encounter
== END 2025-04-19 13:39 | disposition home or self-care (01) ==
LOC: HO.HKASLDS 13:38
PROVIDERS: PCP Internal Medicine; Visit Provider Internal Medicine
DX: Z01.84 Encounter for antibody response examination (principal); R21 Rash and other nonspecific skin eruption
CPT/HCPCS: 36415; 86038; 86225; 86235

== ENCOUNTER 2025-04-30 15:21 | Outpatient (AMB) | payer MEDICARE, SELFPAY ==
--- NOTE | 2025-04-30 15:23 | MHC.PC.OV ---
Vital Signs 04/30/25 15:28 Height 5 ft 4 in Weight 140 lb 6 oz BMI 24.1 BP 133/62 Blood Pressure Location Lt brachial Position Sitting Respiration 16 Pulse 57 Pulse Source Pulse Oximeter Temp 97.6 F Temp Source Oral Pulse Oximetry (%) 97 Oxygen Delivery Method Room Air Intake Visit Reasons: follow up - see comments Intake Note: patient here for follow up Scrum Product Owner Required: No Is last menstrual period known: No Post menopausal: No Patient : No Allergies No Known Allergies Allergy (Verified 04/30/25 15:27) Tobacco use date assessed: 04/30/25 Fall risk assessment: No Falls in past year Last assessed Fall Risk: 04/30/25 Dental Screening Dental Screen Date: 04/30/25 Did you have a dental visit in the last 12 months?: Yes Did you have a dental problem in the last 6 months where you did not have access to dental care?: No Was dental information given to patient?: Patient has dentist HPI HPI Comments History of Present Illness Details The patient is a 74 year old female with a past medical history of hypertension, hyperlipidemia, anxiety, depression, GERD, neck pain presenting for follow up CV: On metoprolol ER 25mg daily, pravastatin 40mg every other day. Denies chest pain, exertional dyspnea, NIX, vision changes GERD: On pantoprazole 40mg daily. Still having frequent reflux, dyspepsia. No heartburn. Insurance would not cover twice daily. She has a history of hiatal hernia, would like this reevaluated Insomnia: On lunesta as needed. Increased depressive symptoms. Decline medications MSK: History of CTS Dr Annemarie Boyd 2022. Neck pain-MRI multilevel DDD cervical spine. Severe bilateral neural foraminal narrowing at C4-C5 and severe right neuroforaminal narrowing at C5-C6. Has seen obstetrics and gynecology professor. Has lichen sclerosis. Feels that she has more diffuse autoimmune issues. Wanted to start HRT.. Sees dermatology Mammogram ordered Declines colon cancer screening. [facility] EGD & colonoscopy 09/18/20 ROS see hpi PHYSICAL EXAM: GENERAL: Alert and oriented x 3. NAD EYES: EOMI. Anicteric. HENT: Moist mucous membranes. Boggy nasal mucosa. LUNGS: Poor air entry bilaterally CARDIOVASCULAR: Regular rate and rhythm. No JVD. ABDOMEN: Soft, non-tender +bs EXTREMITIES: No edema. Non-tender. SKIN: No rashes or lesions. Warm. NEUROLOGIC: No focal neurological deficits. CN II-XII grossly intact PSYCHIATRIC: Cooperative. Appropriate mood and affect [facility] Medical History (Updated 04/30/25 @ 15:44 by Kathy Geronimo MD) Paresthesia of skin Macrocytosis Insomnia HTN (hypertension) Hyperlipidemia History of pneumonia History of kidney stones Hiatal hernia Herniated cervical disc Depression DDD (degenerative disc disease), cervical Carpal tunnel syndrome Arthritis Anesthesia of skin Surgical History Status post laser cataract surgery of right eye Hx of tubal ligation History of colonoscopy Family History Mother Dementia Father Lung cancer Sister COPD (chronic obstructive pulmonary disease) Other Anxiety FH: mental illness Social History Housing: House Alcohol intake: current Patient Tobacco Use Status: Former Tobacco user Years Smoked: 25 e-Cigarette/Vaping Use: Never Used Second Hand Smoke Exposure: No service: No Current occupational status: retired Current occupational exposures/hazards: No Cognitive needs: No Hearing needs: No Vision needs: No Questionnaire PHQ-9 Over the last 2 weeks, how often have you been bothered by any of the following problems? 1. Little interest or pleasure in doing things: several days 2. Feeling down, depressed, or hopeless: several days 3. Trouble falling or staying asleep, or sleeping too much: not at all 4. Feeling tired or having little energy: several days 5. Poor appetite or overeating: several days 6. Feeling bad about yourself - or that you are a failure or have let yourself or your family down: not at all 7. Trouble concentrating on things, such as reading the newspaper or watching television: not at all 8. Moving or speaking so slowly that other people could have noticed. Or the opposite - being so fidgety or restless that you have been moving around a lot more than usual: not at all 9. Thoughts that you would be better off or of hurting yourself in some way: not at all Total score: 4 Depression Screening Interpretation: Positive Depression Screening Done: Yes 89307 - PHQ-9 Billing: Yes Source: Developed by Drs. Karson Ramirez, Sierra Barroso, Julian Casas and colleagues, with an educational kush from [employer]. Thrive Questionnaire Date Thrive assessed: 04/30/24 I am a: Patient What is your living situation today?: I have a steady place to live Within the past 12 months, did the food you bought not last and you didn't have the money to get more?: Never true Within the past 12 months, did you worry whether your food would run out before you got money to buy more?: I choose not to answer this question Do you have trouble paying for medicines?: No Do you have trouble getting transportation to medical appointments?: No Do you have trouble paying your heating and electricity bill?: No Do you have trouble taking care of your child, family member or friend?: No Do you have trouble with day-to-day activities such as bathing, preparing meals, shopping, managing finances, etc.?: No Are you currently unemployed and looking for a job?: No Are you interested in more education?: No THRIVE Score: 0 Physical exam (Primary Care) Vital Signs: Last Vital Signs Temp 97.6 F 04/30/25 15:28 Pulse 57 04/30/25 15:28 Resp 16 04/30/25 15:28 BP 133/62 04/30/25 15:28 Pulse Ox 97 04/30/25 15:28 Oxygen Delivery Method Room Air 04/30/25 15:28 BMI result Body Mass Index 24.1 Tobacco/Smoking Status: Tobacco use Status Tobacco use date assessed 04/30/25 04/30/25 15:31 Patient Tobacco Use Status Former Tobacco user 04/30/25 15:24 e-Cigarette/Vaping Use Never Used 04/30/25 15:24 PHQ-9: PHQ-9 Score PHQ-9: Total score 4 05/04/25 10:35 Depression Screening Interpretation: Positive Thrive Assessment: Date of Thrive Assessment Date Thrive assessed 04/30/24 04/30/25 15:24 Coding Level of Care Code Est Pt Level 4 (73704) Diagnoses Mild episode of recurrent major depressive disorder F33.0 Active/Remission status: currently active Depression Type: major depressive disorder Major depression episode severity: mild Major depression recurrence: recurrent Primary hypertension I10 Hypertension type: primary hypertension Hyperlipidemia, unspecified hyperlipidemia type E78.5 Hyperlipidemia type: unspecified Hiatal hernia K44.9 Additional Codes PHQ-9 - 76768 - PHQ-9 Billing: Yes ([id number]) Assessment & Plan Assessment & Plan (1) Depression: Code(s): F32.A - Depression, unspecified Category: Medical Qualifiers: Active/Remission status: currently active Depression Type: major depressive disorder Major depression episode severity: mild Major depression recurrence: recurrent Qualified Code(s): F33.0 - Major depressive disorder, recurrent, mild (2) HTN (hypertension): Code(s): I10 - Essential (primary) hypertension Category: Medical Qualifiers: Hypertension type: primary hypertension Qualified Code(s): I10 - Essential (primary) hypertension (3) Hyperlipidemia: Code(s): E78.5 - Hyperlipidemia, unspecified Category: Medical Qualifiers: Hyperlipidemia type: unspecified Qualified Code(s): E78.5 - Hyperlipidemia, unspecified (4) Hiatal hernia: Code(s): K44.9 - Diaphragmatic hernia without obstruction or gangrene Category: Medical Plan 74 year old for follow up Interval history reviewed GERD-increased symptoms on PPI. Referred to GI CV-stable on toprol Depression-increased. declines referral,meds Orders: Referrals Gastroenterology Referral K21.9 - Gastro-esophageal reflux disease without esophagitis, K44.9 - Diaphragmatic hernia without obstruction or gangrene Dermatology Referral R21 - Rash and other nonspecific skin eruption Medications: New triamcinolone acetonide 0.1% 1 appl topical DAILY 80 grams 3RF
[2025-04-30 15:28] VITALS: BP 133/62; PULSE 57; RESP 16; TEMP 36.4; O2SAT 97; BMI 24.1
--- OUTSIDE RECORDS SUMMARY | 2025-04-30 18:46 | XMS_ITS | Encounter Summary ---
Author Organization [facility] Address [address] [place] [address] Care Team Providers Care Geographical Historian Name Role Phone Physician, Pcp Unknown Primary Care Provider Pili vailable Encounter Details Date Type Department Care Team (Late st Contact Info) Description 09/20/2024 Lab Requisition [facility] - Main Lab [address] [place] [phone] Marce Saba MD [address] [phone] Acute vaginitis Social History Tobacco Use Types [...] vaginalis Negative Negative 09/21/2024 11:40 AM EDT [facility] Gardnerella vaginalis Negative Negative 09/21/2024 11:40 AM EDT [facility] Ira Species Negative Negative 11:40 AM EDT [facility] Swab Vaginal structure / Unknown 09/20/2024 09/20/2024 12:31 PM EDT us Marce Saba MD LAB MICROBIOLOGY - GENER AL ORDERABLES Final Result [facility] [address] [place] [address], documented in this encounter Visit Diagnoses Diagnosis Acute vaginitis Unspecified vaginitis and vulvovaginitis documented in this encounter Care Teams Geographical Historian Relationship Specialty Start Date End Date Physician, Pcp Unknown PCP - General 09/20/24 documented as of this encounter
--- OUTSIDE RECORDS SUMMARY | 2025-04-30 18:46 | XMS_ITS | Clinical Summary ---
Author Organization 299 [facility] Address [address] [place] [address] Phone Care Team Providers Care Used Car Sales Manager Name Role Phone Physician, Pcp Unknown Primary Care Provider Pili vailable Surgical History Surgery Date Site/Laterality Comments SHOULDER ARTHROSCOPY PROCEDURE: [place] SURGICAL ARTHROSCOPY SHOULDER W/LSS&RESCJ ADS Medical History [...] [place] Care Teams Used Car Sales Manager Relationship Specialty Start Date End Date Physician, Pcp Unknown PCP - General 09/20/24
== END 2025-04-30 17:05 | disposition home or self-care (01) ==
LOC: HO.HMCFM 15:22
PROVIDERS: PCP Internal Medicine; Visit Provider Internal Medicine
DX: F33.0 Major depressive disorder, recurrent, mild (principal); I10 Essential (primary) hypertension; E78.5 Hyperlipidemia, unspecified; K44.9 Diaphragmatic hernia without obstruction or gangrene

== ENCOUNTER → 2025-04-30 15:21 | Outpatient (BNVA) | payer MEDICARE, SELFPAY | PROVIDERS: PCP Internal Medicine; Visit Provider Internal Medicine | DX: K21.9 Gastro-esophageal reflux disease without esophagitis (principal); G47.00 Insomnia, unspecified; F33.0 Major depressive disorder, recurrent, mild; I10 Essential (primary) hypertension; E78.5 Hyperlipidemia, unspecified; K44.9 Diaphragmatic hernia without obstruction or gangrene; R21 Rash and other nonspecific skin eruption | CPT/HCPCS: 96127; 99212 ==